=== PATIENT | female | born 1955 | race Caucasian/White ===

== ENCOUNTER 2024-07-11 | Day surgery (SDC) | payer MEDICARE, SELFPAY ==
[2024-07-03 12:37] VITALS: BMI 41.7
[2024-07-11 10:41] VITALS: BP 117/60; PULSE 79; RESP 16; TEMP 36.5; O2SAT 98; BMI 43.3
[2024-07-11] MEDS: LACTATED RINGERS 1,000 ML 150 ML IV CONT (11:01)
--- NOTE | 2024-07-11 11:04 | SUR.PREOP ---
Patient and spouse were informed that is delayed in schedule. Patient acknowledged update. Call light is in reach to notify me if patient has any questions.
--- NOTE | 2024-07-11 11:43 | P.PNAN_ITS ---
Anes - Initial Pre Proc Eval Procedure: Operation Date: 07/11/24 11:00 Proposed Procedures p Screening Colonoscopy - Serg Miller MD Date/Time: 07/11/24 11:43 Surgeon: Serg Miller MD Pre Op Diagnosis: malignant neoplasm of colon Patient Data Age: 68 Gender: F Height: 1.65 m Weight: 118.1 kg Last Vital Signs Temp 36.5 C 07/11/24 10:41 Pulse 79 07/11/24 10:41 Resp 16 07/11/24 10:41 BP 117/60 07/11/24 10:41 Pulse Ox 98 07/11/24 10:41 O2 Del Method Room Air 07/11/24 10:41 Allergies Allergy/AdvReac Type Severity Reaction Status Date / Time No Known Allergies Allergy Verified 07/11/24 10:48 Home Medications Medication Instructions Recorded Confirmed Type olmesartan 40 mg-amlodipine 10 1 tablet PO DAILY 03/20/24 07/11/24 History mg-hydrochlorothiazide 12.5 mg tablet simvastatin 20 mg tablet 20 mg PO DAILY 07/03/24 07/11/24 History Patient hx anesthesia problems: none Family hx anesthesia problems: none Results Review: All pre-operative results and documents have been reviewed as part of the pre- operative evaluation. PMFSH Surgical History Surgical History H/O section x2 Social History Social History Smoking status: Never smoker Alcohol intake: never Substance use: never Substance use type: does not use Living arrangements: with family Spiritual care concerns: No Anes - Eval Final PreProcedure Day of Procedure 07/11/24 11:43 Patient weight: morbidly obese Heart: regular rate and rhythm Lungs: clear to auscultation Airway: Mallampati scale class II Neurological: alert and oriented Last oral intake: >/= 8 hours ASA classification: III Emergent: no Anesthetic plan: proceed Anesthesia type and monitoring: general GIVS and standard monitoring Results Review: All pre-operative results and documents have been reviewed as part of the pre- operative evaluation. Informed Consent: The patient's anesthetic plan and its attendant risks and benefits were discussed with the patient/family/POA. Questions were solicited and answers provided to the satisfaction of the patient/family/POA.
--- NOTE | 2024-07-11 12:01 | PM.IMHP ---
H&P: HPI History of Present Illness Date/Time: 07/11/24 12:01 Chief Complaint: Screening colonoscopy Narrative: This is the patient's 2nd colonoscopy after more than 10 years.. There are no GI symptoms and there is no family history of colorectal cancer. Review of Systems Review of Systems: All systems reviewed & are unremarkable except as noted in HPI and below PMFSH Surgical History Surgical History H/O section x2 Social History Social History Smoking status: Never smoker Alcohol intake: never Substance use: never Substance use type: does not use Living arrangements: with family Spiritual care concerns: No Meds Home Medications and Allergies Home Medications Medication Instructions Recorded Confirmed Type olmesartan 40 mg-amlodipine 10 1 tablet PO DAILY 03/20/24 07/11/24 History mg-hydrochlorothiazide 12.5 mg tablet simvastatin 20 mg tablet 20 mg PO DAILY 07/03/24 07/11/24 History Allergies Allergy/AdvReac Type Severity Reaction Status Date / Time No Known Allergies Allergy Verified 07/11/24 10:48 Vital Signs Vital Signs - 24 hr 07/11/24 10:41 Temperature 97.7 F Pulse Rate 79 Respiratory Rate 16 Blood Pressure 117/60 Pulse Oximetry 98 Oxygen Delivery Room Air Exam Const: General: cooperative and healthy appearing Resp: Effort & Inspection: normal respiratory effort and able to speak in complete sentences Auscultation: clear to auscultation bilaterally Cardio: Rate: regular rate Rhythm: regular rhythm GI: Inspection: normal to inspection GI Palp: No No hepatosplenomegaly present Auscultation: normal bowel sounds Rectal Exam: deferred Skin: General skin exam: normal color Psych: Appearance: grossly normal Mental Status: mental status grossly normal Assessment and Plan Assessment and plan (1) Encounter for screening colonoscopy: Code(s): Z12.11 - Encounter for screening for malignant neoplasm of colon Status: Acute Assessment and Plan: The patient is deemed a good candidate for the procedure. Consent signed. Will proceed.
[2024-07-11] MEDS: SIMETHICONE ORAL SUSPENSION 20 MG/0.3 ML 30 ML BOTTLE 0.6 ML IRRIGATION (12:16)
[2024-07-11 12:31] VITALS: BP 98/61; PULSE 76; RESP 15; O2SAT 98
[2024-07-11 12:41] VITALS: BP 101/62; PULSE 85; RESP 23; O2SAT 98
[2024-07-11 12:51] VITALS: BP 111/64; PULSE 70; RESP 24; O2SAT 99
== END 2024-07-11 13:00 | disposition home or self-care (01) ==
PROVIDERS: PCP Nurse Practitioner Family; Referring Provider Nurse Practitioner Family; Visit Provider Internal Medicine Gastroenterology
PROC: 0DJD8ZZ Inspection of Lower Intestinal Tract, Via Natural or Artificial Opening Endoscopic (ICD-10-PCS; CPT 45378; principal; 2024-07-11 11:00)
DX: Z12.11 Encounter for screening for malignant neoplasm of colon (principal); K64.8 Other hemorrhoids; E66.01 Morbid (severe) obesity due to excess calories; Z68.41 Body mass index [BMI] 40.0-44.9, adult
CPT/HCPCS: G0121; J2003; J2704; J7120

== ENCOUNTER 2024-09-18 10:23 | Outpatient (CLI) | payer MEDICARE, SELFPAY ==
--- NOTE | ~2024-09-18 | DEXA_ITS ---
Bone Density Report Name: MOY MARTI Age: 69 Sex: Female Ethnicity: White Date of : 1955 Indication: postmenopausal; screening for osteoporosis; height loss; Referring Provider: KIRSTEN YI Study: Bone densitometry was performed. Exam Date: September 18, 2024 Accession number: [id number] Bone Density: Region BMD T-score Z-score Classification AP Spine(L1-L4) 1.092 0.4 2.3 Normal Femoral Neck (Left) 0.692 -1.4 0.2 Osteopenia Total Hip (Left) 1.109 1.4 2.7 Normal Femoral Neck (Right) 0.724 -1.1 0.5 Osteopenia Total Hip (Right) 1.034 0.8 2.1 Normal Total Hip Mean 1.071 1.1 2.4 Normal World Health Organization criteria for BMD impression classify patients as: Normal (T-score at or above -1.0), Osteopenia (T-score between -1.0 and -2.5), or Osteoporosis (T-score at or below -2.5). 10-year Fracture Risk(1): Major Osteoporotic Fracture 7.8% Hip Fracture 0.8% Reported Risk Factors: [place] (), Neck BMD=0.692, BMI=45.3 (1) FRAX(R) Version 3.08. Fracture probability calculated for an untreated patient. Fracture probability may be lower if the patient has received treatment. Clinical Information Provided by Patient: Patient maximum height was 65 Menopause Age: 53 Drinks caffeinated beverages Onset of menses at age 13 Number of children 2 Impression: The patient has low bone mass, based on the Left Femoral Neck T-score. The patient has an estimated ten-year risk of hip fracture of 0.8% and an estimated ten-year risk of major fracture of 7.8%, based on the WHO FRAX algorithm. Discussion: BONE DENSITY IS LOW AT ONE OR MORE SKELETAL SITES. This patient's lowest T-score is low at one or more skeletal sites. It meets the World Health Organization's (WHO) criteria for ?low bone mass? (T-score between -1.0 and -2.5). The patient's 10-year risk of fracture as calculated by FRAX is less than the threshold where pharmacological therapy is recommended by the National Osteoporosis Foundation (NOF). However, all treatment decisions require clinical judgment and consideration of individual patient factors, including patient preferences, comorbidities, previous drug use, risk factors not captured in the FRAX model (e.g., frailty, falls, vitamin D deficiency, increased bone turnover, interval significant decline in bone density) and possible under or overestimation of fracture risk by FRAX. The patient should follow a healthful lifestyle (good nutrition with adequate calcium and vitamin D, and appropriate weight-bearing exercise). Follow-Up: Consider repeating this study in 2 to 3 years to reassess this patient's status, or sooner if there is some new clinical indication. Reported by: MARTIN on 09/18/2024 11:13:00 AM. Reviewed, dictated and finalized at location A.
--- NOTE | ~2024-09-18 | MM_ITS ---
EXAMINATION: MM screening vandana BI w terrie HISTORY: Screening TECHNIQUE: Craniocaudal and mediolateral oblique 3-D tomosynthesis images were obtained and synthetic 2-D images were generated. CAD analysis was submitted and interpreted. COMPARISON: No prior mammogram is available for comparison at this institution. BREAST PARENCHYMAL COMPOSITION: Not Dense: The breasts are almost entirely fatty. FINDINGS: There is no evidence of suspicious mass, calcification, or architectural distortion to sugg est malignancy in either breast. There has been no suspicious interval change. IMPRESSION: 1. No mammographic evidence of malignancy. 2. Recommend routine screening mammography in one year. BI-RADS Category 1: Negative Reviewed, dictated and finalized at location B.
--- OUTSIDE RECORDS SUMMARY | 2024-09-18 10:36 | XMS_ITS | Clinical Summary ---
Author Organization [facility] Address [address] [place] [address] Care Team Providers Care Communication Spec Name Role Phone Kathrine Nair MD Unavailable [phone] None, Provider Primary Care Provider Unavaila ble Allergies No known active allergies Medications Azelaic Acid 15 % gel Apply topically 2 (two) times daily. 4 Active Ivermectin 1 % Cream APPLY TOPICALLY TO FACE TWICE DAILY 4 Active Olmesartan Medoxomil-HCTZ 40-12.5 MG Tab Take 1 tablet by mouth daily. 90 tablet 1 5 Active clobetasol (TEMOVATE) 0.05 % cream APPLY TO LEFT ELBOW TWICE DAILY FOR 2 WEEKS THEN EVERY OTHER DAY 4 Active simvastatin (ZOCOR) 20 MG tablet Take 1 tablet (20 mg total) by mouth nightly at bedtime. 90 tablet 1 5 Active Active Problems Problem Noted Date Diagnosed Date Palpitations 10/07/2022 Abnormal ECG 12/07/2018 CUADRA (dyspnea on exertion) 12/07/2018 Hyperlipidemia Essential hypertension Immunizations Immunization Administration Dates Next Due Influenza (Generic) 01/29/2015 Influenza Adult (Generic) 11/25/2017 Family History Medical History Relation Comments Heart Attack Brother Parkinson's Disease Father Prostate Cancer Father AFib Mother Alzheimers Mother Arthritis Mother cholecystectomy Mother Heart Other Heart Paternal Aunt Relation Status Comments Brother Alive Father (Age 82) Maternal Grandfather Maternal Grandmother Mother (Age 91) Other (Age 90's) Paternal Aunt Alive Paternal Grandfather Paternal Grandmother Sister Alive Social History Tobacco Use Types Packs/Day Years Used Date Smoking Tobacco: Never Smokeless Tobacco: Never Tobacco Cessation:Counseling Given: Not Answered Alcohol Use Standard Drinks/Week Comments Not Currently 1.7 (1 standard drink = 0.6 oz p ure alcohol) occasional AUDIT-C Answer Date Recorded Frequency of Alcohol Consumption Monthly or less 03/14/2019 Average Number of Drinks Not on file 020 Frequency of Binge Drinking Not on file 02/22 Comments Unknown Sex and Gender Information Value Date Recorded Sex Assigned at Female 03/07/2024 7:45 AM HAND SCUDDER Legal Sex Female 9:04 AM CDT Gender Identity Not on file Sexual Orientation Not on file 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 Not on file Not on maria m e Last Filed Vital Signs Vital Sign Reading Time Taken Comments Blood Pressure 136/80 05/21/2024 2:04 PM CDT Pulse 79 05/21/2024 2:04 PM CDT Temperature - - Respiratory Rate - - Oxygen Saturation 98% 05/21/2024 2:04 PM CDT Inhaled Oxygen Concentration - - Weight 117.9 kg (260 lb) 05/21/2024 2:04 PM CDT Height 165.1 cm (5' 5) 05/21/2024 2:04 PM CDT Body Mass Index 43.27 05/21/2024 2:04 PM CDT Plan of Treatment Upcoming Encounters Date Type Department Care Team (Late st Contact Info) Description 11/19/2024 2:15 PM CDT Office Visit [facility], [address] [place] [address] Kathrine Nair MD Three [facility]. [facility] [address] [place], [place] [id number] Health Maintenance Due Date Last Done Comments Colorectal Cancer Screening Colonoscopy (10 Years) 1955 Hepatitis C 08/15/1975 DTaP, Tdap and Td Vaccines ( 1 - Tdap) 1976 Pneumococcal Vaccine: 50+ Years (1 of 1 - PCV) 08/15/2007 Zoster Vaccines (1 of 2) 08/15/2007 RSV Immunization or 60+ Years (1 - Risk 60-74 years 1-dose series) 2017 Mammogram Screening 04/30/2021 05/01/2019, 05/16/2018 Annual Medicare Wellness Visit 2022 Dexa Scan (General) 2022 COVID-19 Vaccine (1 - 2023-2 5 season) 2023 Meningococcal B Vaccine Aged Out No l onger eligible based on patient's age to complete this topic Meningococcal Vaccine Aged Out No elvira stuart eligible based on patient's age to complete this topic RSV Immunizations Under 20 Months Aged Out No longer eligible b ased on patient's age to complete this topic Insurance [employer]ET[employer] Care Teams Communication Spec Relationship Specialty Start Date End Date None, Provider, PCP - General UNKNOWN PHYSICIAN SPECIALTY 12/03/21 Kathrine Nair MD [facility] [address] [place] [address] Tim Test Hole Driller CARDIOVASCULAR DISEASE 11/23/18
--- OUTSIDE RECORDS SUMMARY | 2024-09-18 10:36 | XMS_ITS | Encounter Summary ---
Author Organization [facility] Address [address] [place] [address] Care Team Providers Care Derrick Boat Operator Name Role Phone Kathrine Nair MD Unavailable [phone] None, Provider Primary Care Provider Unavaila ble Encounter Details Date Type Department Care Team (Late Contact Info) Description 12/02/2023 [employer] Message Enc [facility], [facility] [address] [place], [place] [id number] Kathrine Nair MD [facility]. [facility] [address] [place] [address] ECG strip from [facility] Social History Tobacco Use Types Packs/Day Years Used Date Smoking Tobacco: Never Smokeless Tobacco: Never Alcohol Use Standard Drinks/Week Comments Not Currently 1.7 (1 standard drink = 0.6 oz p ure alcohol) occasional AUDIT-C Answer Date Recorded Frequency of Alcohol Consumption Monthly or less 03/14/2019 Average Number of Drinks Not on file 020 Frequency of Binge Drinking Not on file 02/22 Comments Unknown Sex and Gender Information Value Date Recorded Sex Assigned at Female 03/07/2024 7:45 AM MOLD STAMPER Legal Sex Female 9:04 AM CDT Gender Identity Not on file Sexual Orientation Not on file 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 [address] [place], [place] [id number] documented as of this encounter Visit Diagnoses Not on filedocumented in this encounter Care Teams Derrick Boat Operator Relationship Specialty Start Date End Date None, Provider, PCP - General UNKNOWN PHYSICIAN SPECIALTY 12/03/21 Kathrine Nair MD Three [facility]. [address] [place], [place] [id number] Cropsey Vegetable Inspector CARDIOVASCULAR DISEASE 11/23/18 documented as of this encounter
--- OUTSIDE RECORDS SUMMARY | 2024-09-18 10:36 | XMS_ITS | Patient Health Record ---
Author Organization [facility] Address [address] [place], [place] [id number] Care Team Providers Care Fondant Cooker Name Role Phone CHRISTIAN HSU Unavailable [phone] Reason For Referral No Information Plan Of Treatment No Information Insurance Providers Payer Name Payer Address Payer Phone Subscriber Number Group Number Insured Name Patient Relationship to Insured Coverage Start Date Coverage End Date [facility] [address] [address] [place] [id number] MOY MARTI Self - patient is the insured
--- OUTSIDE RECORDS SUMMARY | 2024-09-18 10:36 | XMS_ITS | Encounter Summary ---
Author Organization [facility] Address [address] [place] [address] Care Team Providers Care Tower Supervisor Name Role Phone Rajwinder Cruz NP Primary Care Provider Kathrine Nair MD Unavailable [phone] None, Provider MD Primary Care Provider Unavaila ble Encounter Details Date Type Department Care Team (Late Contact Info) Description 04/23/2019 Abstract [facility], [facility] [address] [place], [place] [address] Alfred Kerr MA Social History Tobacco Use Types Packs/Day Years Used Date Smoking Tobacco: Never Smokeless Tobacco: Never Alcohol Use Standard Drinks/Week Comments Yes 0 (1 standard drink = 0.6 oz pur e alcohol) occasional AUDIT-C Answer Date Recorded Frequency of Alcohol Consumption Monthly or less 03/14/2019 Average Number of Drinks Not on file 020 Frequency of Binge Drinking Not on file 02/22 Comments Unknown Sex and Gender Information Value Date Recorded Sex Assigned at Female 03/07/2024 7:45 AM FRIT MAKER Legal Sex Female 9:04 AM CDT Gender Identity Not on file Sexual Orientation Not on file 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 [facility] [address] [place] [address] documented as of this encounter Procedures Procedure Name Priority Date/Time Associated Diagnosis Comments CMP (ABSTRACTED LAB) Routine 04/06/2024 TSH (OUTSIDE LAB) Routine 04/06/2024 CBC (OUTSIDE LAB) Routine 04/06/2024 LIPID PANEL Routine 04/06/2024 COMPREHENSIVE METABOLIC PANEL Routine 10/06/2023 LIPID PANEL Routine 10/06/2023 ALT/SGPT Routine 10/06/2023 COMPREHENSIVE METABOLIC PANEL Routine 01/06/2023 LIPID PANEL Routine 01/06/2023 AST/SGOT Routine 10/01/2022 AST/SGOT Routine 09/09/2021 BASIC METABOLIC PANEL Routine 09/09/2021 LIPID PANEL Routine 09/09/2021 ALT/SGPT Routine 09/09/2021 LIPOPROTEIN A Routine 11/07/2020 APOLIPOPROTEIN B Routine 11/07/2020 AST/SGOT Routine 11/07/2020 BASIC METABOLIC PANEL Routine 11/07/2020 LIPID PANEL Routine 11/07/2020 ALT/SGPT Routine 11/07/2020 AST/SGOT Routine 10/10/2019 BASIC METABOLIC PANEL Routine 10/10/2019 LIPID PANEL Routine 10/10/2019 ALT/SGPT Routine 10/10/2019 BASIC METABOLIC PANEL Routine 04/20/2019 documented in this encounter Results * CBC (OUTSIDE LAB) (04/06/2024) WBC 6.0 HGB 13.7 HCT 42.4 PLT 273 04/06/2024 us Default History Genericprovider LAB-OUTSIDE/ABST RACTED Final Result * (ABNORMAL) CMP (ABSTRACTED LAB) (04/06/2024) SODIUM S/P/B 141 POTASSIUM S/P/B 4.0 CHLORIDE S/P/B 101 CO2 25 BUN 12 CREATININE S/P/B 0.62 0.5 - 1.0 EGFR NON-AFR. AMER. 98(A) <=90 CALCIUM S/P/B 9.2 GLUCOSE 94 mg/dL TOTAL PROTEIN S/P/B 7.2 ALBUMIN S/P/B 4.2 3.5 - 5.0 AST 19 ALT 18 ALKALINE PHOSPHATASE S/P/B 64 BILIRUBIN TOTAL S/P/B 0.5 GLOBULIN 3.0 04/06/2024 us Default History Genericprovider LAB-OUTSIDE/ABST RACTED Final Result * LIPID PANEL (04/06/2024) CHOLESTEROL 173 HDL 42 TRIGLYCERIDES 230 LDL (CALCULATED) 92 04/06/2024 us Default History Genericprovider LABORATORY Final Result * TSH (OUTSIDE LAB) (04/06/2024) Pathologist [facility] TSH 2.250 04/06/2024 Default History Genericprovider LAB-OUTSIDE/ABST RACTED Final Result * COMPREHENSIVE METABOLIC PANEL (10/06/2023) AST 23 Default History Genericprovider LABORATORY Final Result * LIPID PANEL (10/06/2023) CHOLESTEROL 149 HDL 45 TRIGLYCERIDES 170 LDL (CALCULATED) 75 10/06/2023 Default History Genericprovider LABORATORY Final Result * ALT/SGPT (10/06/2023) Pathologist [facility] ALT 19 10/06/2023 us Default History Genericprovider LABORATORY Final Result * COMPREHENSIVE METABOLIC PANEL (01/06/2023) AST 30 ALT 26 Default History Genericprovider LABORATORY Edited Result - Final * LIPID PANEL (01/06/2023) Pathologist [facility] CHOLESTEROL 159 TRIGLYCERIDES 164 HDL 45 LDL (CALCULATED) 86 Default History Genericprovider LABORATORY Edited Result - Final * AST/SGOT (10/01/2022) AST 35 10/01/2022 Default History Genericprovider LABORATORY Final Result * ALT/SGPT (09/09/2021) ALT 22 09/09/2021 Doc [facility] LABORATORY Final Result * AST/SGOT (09/09/2021) [facility] AST 26 09/09/2021 us Doc [facility] LABORATORY Final Result * LIPID PANEL (09/09/2021) [facility] CHOLESTEROL 201 HDL 43 TRIGLYCERIDES 200 LDL (CALCULATED) 123 09/09/2021 us Doc [facility] LABORATORY Final Result * BASIC METABOLIC PANEL (09/09/2021) [facility] SODIUM S/P/B 139 POTASSIUM S/P/B 4.1 CO2 25 CHLORIDE S/P/B 101 GLUCOSE 102 mg/dL CALCIUM S/P/B 9.5 BUN 13 CREATININE S/P/B 0.78 0.5 - 1.0 EGFR NON-AFR. AMER. 85 <=90 09/09/2021 us Doc [facility] LABORATORY Final Result * LIPOPROTEIN A (11/07/2020) [facility] LIPOPROTEIN (A) Comment:error,deleted 11/07/2020 Default History Genericprovider LABORATORY Edited Result - Final * APOLIPOPROTEIN B (11/07/2020) [facility] APOLIPOPROTEIN B Comment:error,deleted 11/07/2020 us Default History Genericprovider LABORATORY Edited Result - Final * ALT/SGPT (11/07/2020) [facility] ALT 23 11/07/2020 us Doc [facility] LABORATORY Final Result * AST/SGOT (11/07/2020) AST 27 11/07/2020 us Doc [facility] LABORATORY Edited Resul t - Final * (ABNORMAL) BASIC METABOLIC PANEL (11/07/2020) Pathologist [facility] SODIUM S/P/B 141 POTASSIUM S/P/B 4.1 CO2 28 CHLORIDE S/P/B 103 GLUCOSE 98 mg/dL CALCIUM S/P/B 9.4 BUN 17 CREATININE S/P/B 0.74 0.5 - 1.0 EGFR AFR. AMER. 100(A) <=90 EGFR NON-AFR. AMER. 86 <=90 11/07/2020 us Doc [facility] LABORATORY Final Result * LIPID PANEL (11/07/2020) Pathologist [facility] CHOLESTEROL 182 HDL 44 TRIGLYCERIDES 172 NON HDL CHOLESTEROL 138 LDL (CALCULATED) 109 11/07/2020 us Doc [facility] LABORATORY Final Result * AST/SGOT (10/10/2019) Pathologist [facility] AST 21 0 - 40 10/10/2019 us Doc [facility] LABORATORY Final Result * ALT/SGPT (10/10/2019) Pathologist [facility] ALT 18 0 - 32 10/10/2019 us Doc [facility] LABORATORY Edited Resul t - Final * LIPID PANEL (10/10/2019) Pathologist [facility] CHOLESTEROL 167 HDL 40 TRIGLYCERIDES 158 LDL (CALCULATED) 95 10/10/2019 us Doc [facility] LABORATORY Final Result * BASIC METABOLIC PANEL (10/10/2019) SODIUM S/P/B 141 POTASSIUM S/P/B 4.5 CO2 28 CHLORIDE S/P/B 100 GLUCOSE 92 mg/dL CALCIUM S/P/B 9.4 BUN 17 CREATININE S/P/B 0.86 0.5 - 1.0 EGFR AFR. AMER. 84 <=90 EGFR NON-AFR. AMER. 73 <=90 10/10/2019 us Doc [facility] LABORATORY Final Result * BASIC METABOLIC PANEL (04/20/2019) SODIUM S/P/B 139 134 - 144 POTASSIUM S/P/B 4.0 3.5 - 5.2 CO2 24 20 - 29 CHLORIDE S/P/B 100 96 - 106 GLUCOSE 95 65 - 99 mg/dL CALCIUM S/P/B 9.4 8.7 - 10.3 BUN 12 8 - 27 CREATININE S/P/B 0.89 0.5 - 1.0 EGFR AFR. AMER. 81 <=90 EGFR NON-AFR. AMER. 70 <=90 04/20/2019 us Doc [facility] LABORATORY Final Result documented in this encounter Visit Diagnoses Not on filedocumented in this encounter Care Teams Tower Supervisor Relationship Specialty Start Date End Date Rajwinder Cruz NP PCP - General NURSE PRACTITIONER 11/09/18 12/02/21 None, MD Rhett PCP - General UNKNOWN PHYSICIAN SPECIALTY 12/03/21 Kathrine Nair MD Three [facility]. [id number] [place] [address] Scroggins Customer Service Leader CARDIOVASCULAR DISEASE 11/23/18 documented as of this encounter
== END 2024-09-18 10:24 | disposition home or self-care (01) ==
LOC: ANHIMG 10:24
PROVIDERS: PCP Nurse Practitioner Family; Visit Provider Nurse Practitioner Family
DX: Z12.31 Encounter for screening mammogram for malignant neoplasm of breast (principal); M85.89 Other specified disorders of bone density and structure, multiple sites; Z78.0 Asymptomatic menopausal state; Z13.820 Encounter for screening for osteoporosis
CPT/HCPCS: 77063; 77067; 77080